=== PATIENT | female | born 1960 | race Caucasian/White ===

== ENCOUNTER 2018-11-02 09:33 | Day surgery (SDC) | payer MEDICARE ==
[2018-11-02] MEDS ORDERED: Marcaine 0.5% SDV 10 ML IJ ONE (09:34)
[2018-11-02] MEDS ORDERED: DIPRIVAN 200 MG/20 ML IV ONE (09:34)
[2018-11-02] MEDS ORDERED: Ketamine HCl 50 MG/ML IV ONE (09:34)
[2018-11-02] MEDS ORDERED: Depo-Medrol 40 MG/ML IM ONE (09:34)
--- NOTE | 2018-11-02 11:07 | XRAY ---
14 seconds fluoroscopy time in surgery for left hip injection.
--- NOTE | 2018-11-02 11:08 | XRAY ---
11 seconds fluoroscopy time in surgery for right hip injection.
--- NOTE | 2018-11-02 11:08 | XRAY ---
Indication: Left hip injection. Intraoperative fluoroscopy was provided for 14 seconds. Single digital spot image submitted for interpretation demonstrates needle tip just lateral to the left femur head. Small amount of contrast injected for needle tip placement. Correlate with intraoperative findings/report.
--- NOTE | 2018-11-02 11:17 | XRAY ---
Indication: Right hip injection. Intraoperative fluoroscopy was provided for 11 seconds. Single digital spot image submitted for interpretation demonstrates needle tip just lateral to the right femur head. Small amount of contrast injected for needle tip placement. Correlate with intraoperative findings/report.
[2018-11-02] MEDS ORDERED: Lactated Ringers 1,000 ML IV ONE (13:07)
== END 2018-11-02 10:40 | disposition home or self-care (01) ==
LOC: SDC-PAIN 09:33
PROVIDERS: ATTEND Psychiatry & Neurology Pain Medicine
DX: M16.0 Bilateral primary osteoarthritis of hip (principal); I12.9 Hypertensive chronic kidney disease with stage 1 through stage 4 chronic kidney disease, or unspecified chronic kidney disease; N18.3 Chronic kidney disease, stage 3 (moderate); E05.90 Thyrotoxicosis, unspecified without thyrotoxic crisis or storm; F32.9 Major depressive disorder, single episode, unspecified; J44.9 Chronic obstructive pulmonary disease, unspecified
CPT/HCPCS: 20610; 73501; 77002; J1030; J2704; Q9966

== ENCOUNTER 2019-01-22 21:46 | Emergency (ER) | payer MEDICARE ==
--- NOTE | 2019-01-22 22:00 | ERPHSYRPT ---
- History of Present Illness Time Seen by Provider: 01/22/19 22:00 Source: patient, family Exam Limitations: no limitations Physician History: 58 y/o white female with known hypertension on losartan/hctz and rapid heart rate on propranolol presents with both issues. pts noticed worsening sx 2 days ago. pt did feel lightheaded today. pt did not take her propranolol this evening. pt takes her bp at home using a wrist bp machine. pt has an appt with dolly pusher Dr. Carter 02/15/19. pt has intermittent cp, none now. denies dizziness and denies abd pain. Timing/Duration: day(s) (2) Severity: moderate Associated Symptoms: other (light headedness), No nausea, No vomiting, No abdominal pain, No chest pain, No headaches, No syncope Allergies/Adverse Reactions: erythromycin base [Erythromycin Base] Allergy (Verified 01/22/19 22:20) oxycodone HCl [From OxyContin] Allergy (Verified 01/22/19 22:20) Penicillins Allergy (Verified 01/22/19 22:20) Home Medications: Baclofen 10 mg [Lioresal 10 mg] 10 mg PO BID 01/22/19 [History] Levothyroxine Sodium [Tirosint] 75 mcg PO DAILY 01/22/19 [History] Losartan/Hydrochlorothiazide [Losartan-Hctz 100-12.5 mg Tab] 1 each PO DAILY [History] Propranolol HCl [Inderal Xl] 120 mg PO BID 01/22/19 [History] Rosuvastatin Calcium [Crestor] 5 mg PO HS 01/22/19 [History] Tramadol HCl 50 mg [Ultram 50 mg] 50 mg PO BID 01/22/19 [History] Zolpidem Tartrate 10 mg [Ambien 10 MG] 10 mg PO HS 01/22/19 [History] Hx Influenza Vaccination/Date Given: Yes (2012) Hx Pneumococcal Vaccination/Date Given: Yes (2011) - Review of Systems Constitutional: No Symptoms Eyes: No Symptoms Ears, Nose, & Throat: No Symptoms Respiratory: No Symptoms Cardiac: Chest Pain (intermittent), Palpitations Abdominal/Gastrointestinal: No Symptoms Genitourinary Symptoms: No Symptoms Musculoskeletal: No Symptoms Skin: No Symptoms Neurological: No Symptoms Psychological: No Symptoms Endocrine: No Symptoms Hematologic/Lymphatic: No Symptoms Immunological/Allergic: No Symptoms All Other Systems: Reviewed and Negative - Past Medical History Pertinent Past Medical History: Yes Neurological History: Migraines ENT History: Other Cardiac History: Hypertension Respiratory History: Asthma, Bronchitis, COPD, Pneumonia Endocrine Medical History: Hyperthyroidism, Hypothyroidism Musculoskeletal History: Degenerative Disk Disease, Fibromyalgia, Osteoarthritis , Osteoporosis GI Medical History: GERD, Irritable Bowel History: No Pertinent History Psycho-Social History: Anxiety, Depression Female Reproductive Disorders: No Pertinent History, Fibroids Other Medical History: FIBROMYGLIA,KIDNEY STONES, chronic dry eyes - Past Surgical History Past Surgical History: Yes Neuro Surgical History: No Pertinent History Cardiac: No Pertinent History Respiratory: Other Gastrointestinal: No Pertinent History Genitourinary: No Pertinent History Musculoskeletal: No Pertinent History Female Surgical History: No Pertinent History Other Surgical History: t&a. lung biopsy. chest tube after spontaneous pneumo. thyroid removed - Social History Smoking Status: Former smoker How long have you smoked: 35 yrs Exposure to second hand smoke: No Drug Use: none Patient Lives Alone: No - Nursing Vital Signs Nursing Vital Signs: Initial Vital Signs Pulse Rate 113 H 01/22/19 21:55 Respiratory Rate 18 01/22/19 21:55 Blood Pressure 152/124 01/22/19 21:55 O2 Sat by Pulse Oximetry 95 01/22/19 21:55 Pain Scale Pain Intensity 8 - Physical Exam General Appearance: mild distress, alert, anxiety Eye Exam: PERRL/EOMI, eyes nml inspection Ears, Nose, Throat Exam: normal ENT inspection, moist mucous membranes Neck Exam: normal inspection, non-tender, supple, full range of motion Respiratory Exam: normal breath sounds, lungs clear, airway intact, No chest tenderness, No respiratory distress Cardiovascular Exam: tachycardia Gastrointestinal/Abdomen Exam: soft, normal bowel sounds, No tenderness Pelvic Exam: not done Rectal Exam: not done Back Exam: normal inspection, normal range of motion, vertebral tenderness, No CVA tenderness Extremity Exam: normal inspection, normal range of motion, pelvis stable Neurologic Exam: alert, oriented x 3, cooperative, inspector finishing II-XII nml as tested, normal mood/affect Skin Exam: normal color, warm, dry Lymphatic Exam: No adenopathy SpO2 Interpretation: normal O2 Delivery: Room Air - Course Nursing assessment & vital signs reviewed: Yes EKG Interpreted by Me: RATE ([id number]), Sinus Tach, NORMAL AXIS, NORMAL INTERVALS, NORMAL QRS, Non-specific ST Changes, Other (new tachycardia and nonspecific st changes compared to ekg dated 04/19/12) Ordered Tests: Active Orders 24 hr Category Date Time Status Technical Applications Specialist STAT Care 01/22/19 22:22 Active EKG-ER Only STAT Care 01/22/19 22:20 Active IV Insertion STAT Care 01/22/19 22:20 Active Orthostatic Vital Signs STAT Care 01/22/19 22:24 Active Pulse Oximetry (ED) STAT Care 01/22/19 22:20 Active HEAD WITHOUT CONTRAST [CT] Stat Exams 01/22/19 23:45 Taken CBC W DIFF Stat Lab 01/22/19 22:20 Completed CMP Stat Lab 01/22/19 22:20 Completed CULTURE,URINE Stat Lab 01/22/19 23:56 Received D-DIMER QUANTITATION Stat Lab 01/22/19 22:20 Completed MAGNESIUM Stat Lab 01/22/19 22:20 Completed NT PRO BNP Stat Lab 01/22/19 22:20 Completed TROPONIN Q3H Lab 01/23/19 01:15 Ordered TROPONIN Q3H Lab 01/23/19 04:15 Ordered TROPONIN Q3H Lab 01/23/19 07:15 Ordered TROPONIN Q3H Lab 01/23/19 10:15 Ordered TROPONIN Q3H Lab 01/23/19 13:15 Ordered TROPONIN Q3H Lab 01/23/19 16:15 Ordered TROPONIN Q3H Lab 01/23/19 19:15 Ordered TROPONIN Q3H Lab 01/23/19 22:15 Ordered UA W/RFX UR CULTURE Stat Lab 01/22/19 23:56 Completed Medication Summary Generic Name Dose Route Start Last Admin Trade Name Freq PRN Reason Stop Dose Admin Sodium Chloride 1,000 mls @ 100 mls/hr 01/23/19 01:15 Sodium Chloride 0.9% 1000 Ml IV 02/22/19 01:14 .Q10H YISEL Discontinued Medications Generic Name Dose Route Start Last Admin Trade Name Freq PRN Reason Stop Dose Admin Acetaminophen 650 mg 01/23/19 01:06 Tylenol 325 Mg PO 01/23/19 01:07 STAT STA Acetaminophen Confirm 01/23/19 01:06 Tylenol 325 Mg Administered 01/23/19 01:07 Dose 650 mg .ROUTE .STK-MED ONE Enalaprilat 1.25 mg 01/22/19 23:45 01/22/19 23:59 Vasotec I.V. 2.5 Mg IV 01/22/19 23:46 1.25 mg STAT ONE Administration Enalaprilat Confirm 01/22/19 23:52 Vasotec I.V. 2.5 Mg Administered 01/22/19 23:53 Dose 2.5 mg IV .STK-MED ONE Lorazepam 0.5 mg 01/23/19 00:36 01/23/19 00:40 Ativan 2 Mg/1 Ml Vial IV 01/23/19 00:37 0.5 mg STAT ONE Administration Lorazepam Confirm 01/23/19 00:39 Ativan 2 Mg/1 Ml Vial Administered 01/23/19 00:40 Dose 2 mg .ROUTE .STK-MED ONE Metoprolol Tartrate 5 mg 01/22/19 22:23 01/22/19 22:30 Lopressor 5 Mg/5 Ml Injection IV 01/22/19 22:24 5 mg STAT ONE Administration Metoprolol Tartrate Confirm 01/22/19 22:28 Lopressor 5 Mg/5 Ml Injection Administered 01/22/19 22:29 Dose 5 mg IV .STK-MED ONE Lab/Rad Data: Laboratory Result Diagrams 01/22/19 22:20 01/22/19 22:20 Laboratory Results 01/22/19 01/22/19 01/22/19 Range/Units 23:56 22:20 22:20 WBC (4.0-10.5) K/mm3 RBC (4.1-5.4) M/mm3 Hgb (12.0-16.0) gm/dl Hct (35-47) % MCV (78-100) fl MCH (26-32) pg MCHC (32-36) g/dl RDW (11.5-14.0) % Plt Count (150-450) K/mm3 MPV (6-9.5) fl Gran % (36.0-66.0) % Eos # (Auto) (0-0.5) Absolute Lymphs (auto) (1.0-4.6) Absolute Monos (auto) (0.0-1.3) Lymphocytes % (24.0-44.0) % Monocytes % (0.0-12.0) % Eosinophils % (0.00-5.0) % Basophils % (0.0-0.4) % Absolute Granulocytes (1.4-6.9) Basophils # (0-0.4) D-Dimer < 208 L (215-500) ng/mL Sodium 141 (137-145) mmol/L Potassium 3.8 (3.5-5.1) mmol/L Chloride 103 (98-107) mmol/L Carbon Dioxide 24 (22-30) mmol/L Anion Gap 17.8 H (5-15) MEQ/L BUN 31 H (7-17) mg/dL Creatinine 1.72 H (0.52-1.04) mg/dL Estimated GFR 32.1 ML/MIN Glucose 106 (74-106) mg/dL Calcium 10.2 (8.4-10.2) mg/dL Magnesium 2.0 (1.6-2.3) mg/dL Total Bilirubin 0.50 (0.2-1.3) mg/dL AST 28 (14-36) U/L ALT 19 (0-35) U/L Alkaline Phosphatase 90 (38-126) U/L NT-Pro-B Natriuret Pep 76.8 (0-900) pg/mL Serum Total Protein 8.7 H (6.3-8.2) g/dL Albumin 4.9 (3.5-5.0) g/dL Urine Color YELLOW (YELLOW) Urine Appearance SLIGHTLY CLOUDY (CLEAR) Urine pH 5.0 (5-6) Ur Specific Skipwith 1.019 (1.005-1.025) Urine Protein NEGATIVE (Negative) Urine Ketones NEGATIVE (NEGATIVE) Urine Blood NEGATIVE (0-5) Oscar/ul Urine Nitrite NEGATIVE (NEGATIVE) Urine Bilirubin NEGATIVE (NEGATIVE) Urine Urobilinogen 2 (0-1) mg/dL Ur Leukocyte Esterase SMALL (NEGATIVE) Urine WBC (Auto) 11-15 (0-5) /HPF Urine RBC (Auto) 0-2 (0-2) /HPF U Hyaline Cast (Auto) 6-10 (0-2) /LPF U Epithel Cells (Auto) RARE (FEW) /HPF Urine Bacteria (Auto) NONE (NEGATIVE) /HPF Urine Mucus (Auto) SLIGHT (NEGATIVE) /HPF Urine Culture Reflexed YES (NO) Urine Glucose NEGATIVE (NEGATIVE) mg/dL 01/22/19 Range/Units 22:20 WBC 6.6 (4.0-10.5) K/mm3 RBC 5.23 (4.1-5.4) M/mm3 Hgb 15.7 (12.0-16.0) gm/dl Hct 48.4 H (35-47) % MCV 92.5 (78-100) fl MCH 30.0 (26-32) pg MCHC 32.4 (32-36) g/dl RDW 14.4 H (11.5-14.0) % Plt Count 289 (150-450) K/mm3 MPV 10.3 H (6-9.5) fl Gran % 37.0 (36.0-66.0) % Eos # (Auto) 0.11 (0-0.5) Absolute Lymphs (auto) 3.41 (1.0-4.6) Absolute Monos (auto) 0.62 (0.0-1.3) Lymphocytes % 51.4 H (24.0-44.0) % Monocytes % 9.4 (0.0-12.0) % Eosinophils % 1.7 (0.00-5.0) % Basophils % 0.5 (0.0-0.4) % Absolute Granulocytes 2.46 (1.4-6.9) Basophils # 0.03 (0-0.4) D-Dimer (215-500) ng/mL Sodium (137-145) mmol/L Potassium (3.5-5.1) mmol/L Chloride (98-107) mmol/L Carbon Dioxide (22-30) mmol/L Anion Gap (5-15) MEQ/L BUN (7-17) mg/dL Creatinine (0.52-1.04) mg/dL Estimated GFR ML/MIN Glucose (74-106) mg/dL Calcium (8.4-10.2) mg/dL Magnesium (1.6-2.3) mg/dL Total Bilirubin (0.2-1.3) mg/dL AST (14-36) U/L ALT (0-35) U/L Alkaline Phosphatase (38-126) U/L NT-Pro-B Natriuret Pep (0-900) pg/mL Serum Total Protein (6.3-8.2) g/dL Albumin (3.5-5.0) g/dL Urine Color (YELLOW) Urine Appearance (CLEAR) Urine pH (5-6) Ur Specific Skipwith (1.005-1.025) Urine Protein (Negative) Urine Ketones (NEGATIVE) Urine Blood (0-5) Oscar/ul Urine Nitrite (NEGATIVE) Urine Bilirubin (NEGATIVE) Urine Urobilinogen (0-1) mg/dL Ur Leukocyte Esterase (NEGATIVE) Urine WBC (Auto) (0-5) /HPF Urine RBC (Auto) (0-2) /HPF U Hyaline Cast (Auto) (0-2) /LPF U Epithel Cells (Auto) (FEW) /HPF Urine Bacteria (Auto) (NEGATIVE) /HPF Urine Mucus (Auto) (NEGATIVE) /HPF Urine Culture Reflexed (NO) Urine Glucose (NEGATIVE) mg/dL - Progress Progress: improved, pain not gone completely Progress Note: 01/23/19 01:12 family reports pt not taking meds the way she was told to.. ct head-no acute process. pt complains of headache. Counseled pt/family regarding: lab results, diagnosis, need for follow-up, rad results - Departure Departure Disposition: Home Clinical Impression: Headache, Hypertensive urgency, Tachycardia, UTI (urinary tract infection) Condition: Stable Critical Care Time: Yes Critical Care Time(excluding separately billable procedures): Critical 30-74 mins Referrals: WILSON DAVID [Primary Care Provider] - Additional Instructions: call dr. carter's office today for further management. monitor and record your blood pressure and heart rate 3 times daily. take your medications as prescribed. Prescriptions: Ciprofloxacin [Cipro 500 MG] 500 mg PO BID #14 tablet
[2019-01-22] MEDS ORDERED: LOPRESSOR 5 MG/5 ML INJECTION IV ONE ×2 (22:23→22:28)
[2019-01-22 22:29] LABS: BASOPHIL % 0.5 % (0.0-0.4); Basophil (Absolute #) 0.03 (0-0.4); Eosinophil % 1.7 % (0.00-5.0); Eosinophil (Absolute #) 0.11 (0-0.5); Granulocyte Absolute (ANC) 2.46 (1.4-6.9); Hematocrit 48.4 % (35-47); Hemoglobin 15.7 gm/dl (12.0-16.0); Lymphocyte (Absolute #) 3.41 (1.0-4.6); Lymphocytes % 51.4 % (24.0-44.0); Mean Cell Volume 92.5 fl (78-100); Mean Corpuscular Hgb Concent. 32.4 g/dl (32-36); Mean Platelet Volume 10.3 fl (6-9.5); Monocyte (Absolute #) 0.62 (0.0-1.3); Monocytes % 9.4 % (0.0-12.0); Platelet Count 289 K/mm3 (150-450); Red Blood Count 5.23 M/mm3 (4.1-5.4); Red Cell Distribution Width 14.4 % (11.5-14.0); White Blood Count 6.6 K/mm3 (4.0-10.5)
[2019-01-22 22:43] LABS: ALBUMIN 4.9 g/dL (3.5-5.0); ANION GAP 17.8 MEQ/L (5-15); BILIRUBIN,TOTAL 0.5 mg/dL (0.2-1.3); Calcium 10.2 mg/dL (8.4-10.2); Creatinine 1 1.72 mg/dL (0.52-1.04); NT PRO BNP 76.8 pg/mL (0-900); Potassium 3.8 mmol/L (3.5-5.1); Total Protein 8.7 g/dL (6.3-8.2)
[2019-01-22] MEDS ORDERED: VASOTEC I.V. 2.5 MG IV ONE ×2 (23:45→23:52)
[2019-01-23] MEDS ORDERED: Ativan 2 MG/1 ML VIAL IV ONE (00:36)
[2019-01-23 00:39] LABS: Appearance SLIGHTLY CLOUDY (CLEAR); Bilirubin NEGATIVE (NEGATIVE); Blood NEGATIVE Ery/ul (0-5); Epithelial Cells RARE /HPF (FEW); Glucose NEGATIVE (NEGATIVE); Ketones NEGATIVE (NEGATIVE); Leukocyte Esterase SMALL (NEGATIVE); Mucus SLIGHT /HPF (NEGATIVE); Nitrite NEGATIVE (NEGATIVE); Protein,Urine Dip NEGATIVE (Negative); RBC 0-2 /HPF (0-2); Specific Gravity 1.019 (1.005-1.025); Urobilinogen 2 mg/dL (0-1)
[2019-01-23] MEDS ORDERED: Ativan 2 MG/1 ML VIAL ONE (00:39)
[2019-01-23] MEDS ORDERED: TYLENOL 325 MG PO STA (01:06)
[2019-01-23] MEDS ORDERED: Sodium Chloride 0.9% 1000 ML 0 ML ONE (01:06)
[2019-01-23] MEDS ORDERED: TYLENOL 325 MG ONE (01:06)
[2019-01-23] MEDS ORDERED: Sodium Chloride 0.9% 1000 ML 1,000 ML IV SCH (01:15)
[2019-01-23 01:46] VITALS: BP 120/86; PULSE 85; O2SAT 97
[2019-01-23] MEDS ORDERED: Cipro 500 MG PO ONE (01:51)
[2019-01-23] MEDS ORDERED: Cipro 500 MG ONE (01:52)
--- NOTE | 2019-01-23 08:42 | XRAY ---
Indication: Headache. Hypertension. Tachycardia and palpitations. Multiple contiguous axial images obtained through the head without contrast. Comparison: None Normal appearing brain parenchyma, ventricles, and bony calvarium. Minimal mucosal thickening both ethmoid sinuses. Remaining visualized paranasal sinuses and mastoid air cells are clear. Impression: Minimal paranasal sinus disease. Remaining CT head without contrast exam is negative. Comment: Preliminary interpretation was made by [facility]. No critical discrepancy. CT DI 69.25
== END 2019-01-23 02:06 | disposition home or self-care (01) ==
LOC: ED 21:46
DX: R51 Headache (principal); I16.0 Hypertensive urgency; R00.0 Tachycardia, unspecified; N39.0 Urinary tract infection, site not specified
CPT/HCPCS: 36000; 36415; 70450; 80053; 81001; 83735; 83880; 84484; 85025; 85379; 87086; 93005; 93041; 94760; 96374; 96375; 99285; 99291; J2060; A9270-GY

== ENCOUNTER 2019-01-28 17:41 | Emergency (ER) | payer MEDICARE ==
--- NOTE | 2019-01-28 18:32 | ERPHSYRPT ---
- History of Present Illness Time Seen by Provider: 01/28/19 18:10 Source: patient Exam Limitations: no limitations Patient Subjective Stated Complaint: pt reports hypotension today measuring 89/ 45. pt reports she was seen at this facility for hypertension 01/22/19. states she was started on metoprolol 01/25/19. pt reports dizziness upon standing and decreased energy since last weekend. Triage Nursing Assessment: pt is aox3, pupils perrl, resps easy and non labored , pt appears in no distress, radial pulses strong and equal, cap refill < 3 seconds, pt skin pink warm dry. Physician History: Pt was seen here 6 days ago with high blood pressure, her Cozaar/HCT was changed to plain Cozaar 100 mg AM, and continued Metoprolol XT 25 mg daily. She has been also taking Cipro for UTI for 6 days, she is c/o dizziness for about one week, denies headaches, falling, loss of balance, vertigo, no focal weakness , chest pain or severe SOB, nausea, fever other complaints. Timing/Duration: day(s) (7) Severity: mild, moderate Character of Deficits: general (difuse) Deficits: no difficulties Baseline/Normal Cognition: alert oriented x 3 Current Cognition: alert oriented x 3 Baseline Gait: walks w/o assistance Associated Symptoms: weakness (generalized) Allergies/Adverse Reactions: erythromycin base [Erythromycin Base] Allergy (Verified 01/28/19 18:08) oxycodone HCl [From OxyContin] Allergy (Verified 01/28/19 18:08) Penicillins Allergy (Verified 01/28/19 18:08) Home Medications: Baclofen 10 mg [Lioresal 10 mg] 10 mg PO BID 01/22/19 [History] Levothyroxine Sodium [Tirosint] 75 mcg PO DAILY 01/22/19 [History] Tramadol HCl 50 mg [Ultram 50 mg] 50 mg PO BID 01/22/19 [History] Zolpidem Tartrate 10 mg [Ambien 10 MG] 10 mg PO HS 01/22/19 [History] Losartan Potassium 100 mg PO DAILY 01/28/19 [History] Metoprolol Tartrate 25 mg [Lopressor 25MG Tab] 25 mg PO HS 08/24/19 [ History] Hx Tetanus, Diphtheria Vaccination/Date Given: No Hx Influenza Vaccination/Date Given: No Hx Pneumococcal Vaccination/Date Given: No Immunizations Up to Date: Yes - Review of Systems Constitutional: No Symptoms Eyes: No Symptoms Ears, Nose, & Throat: No Symptoms Respiratory: No Symptoms Cardiac: No Symptoms Abdominal/Gastrointestinal: No Symptoms Genitourinary Symptoms: No Symptoms Musculoskeletal: No Symptoms Skin: No Symptoms Neurological: Dizziness Psychological: No Symptoms All Other Systems: Reviewed and Negative - Past Medical History Pertinent Past Medical History: Yes Neurological History: Migraines ENT History: Other Cardiac History: Hypertension Respiratory History: Asthma, Bronchitis, COPD, Pneumonia Endocrine Medical History: Hyperthyroidism, Hypothyroidism Musculoskeletal History: Degenerative Disk Disease, Fibromyalgia, Osteoarthritis , Osteoporosis GI Medical History: GERD, Irritable Bowel History: No Pertinent History Psycho-Social History: Anxiety, Depression Female Reproductive Disorders: No Pertinent History, Fibroids Other Medical History: FIBROMYGLIA,KIDNEY STONES, chronic dry eyes - Past Surgical History Past Surgical History: Yes Neuro Surgical History: No Pertinent History Cardiac: No Pertinent History Respiratory: Other Gastrointestinal: No Pertinent History Genitourinary: No Pertinent History Musculoskeletal: No Pertinent History Female Surgical History: No Pertinent History Other Surgical History: t&a. lung biopsy. chest tube after spontaneous pneumo. thyroid removed - Social History Smoking Status: Former smoker How long have you smoked: 35 yrs Exposure to second hand smoke: No Drug Use: none Patient Lives Alone: Yes - Female History Hx Now: No - Nursing Vital Signs Nursing Vital Signs: Initial Vital Signs Temperature 98.7 F 01/28/19 17:53 Pulse Rate 72 01/28/19 17:53 Respiratory Rate 20 01/28/19 17:53 Blood Pressure 166/88 01/28/19 17:53 O2 Sat by Pulse Oximetry 97 01/28/19 17:53 Pain Scale Pain Intensity 0 - [place] Coma Scale Best Eye Response ([place]): (4) open spontaneously Best Verbal Response ([place]): (5) oriented Best Motor Response ([place]): (6) obeys commands [place] Total: 15 - Physical Exam General Appearance: no apparent distress Eye Exam: bilateral eye: PERRL, EOMI Ears, Nose, Throat Exam: normal ENT inspection, pharynx normal, moist mucous membranes Neck Exam: normal inspection, non-tender, supple, No carotid bruit, No JVD Respiratory: normal breath sounds, lungs clear, airway intact, No chest tenderness Cardiovascular: regular rate/rhythm, normal heart sounds, normal peripheral pulses, No murmur Gastrointestinal: soft, normal bowel sounds, No tenderness, No distention, No mass, No guarding, No ecchymosis, No rebound, No organomegaly Extremity Exam: normal inspection, No calf tenderness, No dilia's sign, No pedal edema Peripheral Pulses: carotid (R): 2+, carotid (L): 2+, dorsalis-pedis (R): 2+, dorsalis-pedis (L): 2+ Mental Status: alert, oriented x 3, cooperative supervisor stave cutting Exam: normal speech, PERRL Coordination/Gait: normal gait Motor/Sensory: no motor deficit, no sensory deficit DTR: bicep (R): 2+, bicep (L): 2+, knee (R): 2+, knee (L): 2+, ankle (R): 2+, ankle (L): 2+ Skin Exam: normal color, warm, dry, No rash, No petechiae, No cyanosis, No diaphoresis SpO2 Interpretation: normal SpO2: 97 O2 Delivery: Room Air - Course Nursing assessment & vital signs reviewed: Yes EKG Interpreted by Me: RATE (56/min), Sinus Teofilo, NORMAL AXIS, NORMAL INTERVALS , NORMAL QRS, Non-specific ST Changes Ordered Tests: Active Orders 24 hr Category Date Time Status Transit Driver STAT Care 01/28/19 18:26 Active EKG-ER Only STAT Care 01/28/19 18:25 Active IV Insertion STAT Care 01/28/19 19:44 Active CBC W DIFF Stat Lab 01/28/19 18:43 Completed CK-Creatinine Phosphokinase Stat Lab 01/28/19 18:43 Completed CMP Stat Lab 01/28/19 18:43 Completed MAGNESIUM Stat Lab 01/28/19 18:43 Completed NT PRO BNP Stat Lab 01/28/19 18:43 Completed PROTIME WITH INR Stat Lab 01/28/19 18:43 Completed PTT Stat Lab 01/28/19 18:43 Completed TROPONIN Q3H Lab 01/28/19 18:43 Completed TROPONIN Q3H Lab 01/28/19 21:30 Ordered TROPONIN Q3H Lab 01/29/19 00:30 Ordered TROPONIN Q3H Lab 01/29/19 03:30 Ordered TROPONIN Q3H Lab 01/29/19 06:30 Ordered TSH [TSH, 3RD Generation] Stat Lab 01/28/19 18:43 Completed UA W/RFX UR CULTURE Stat Lab 01/28/19 19:03 Completed Medication Summary Generic Name Dose Route Start Last Admin Trade Name Freq PRN Reason Stop Dose Admin Sodium Chloride 1,000 mls @ 100 mls/hr 01/28/19 19:45 01/28/19 20:09 Sodium Chloride 0.9% 1000 Ml IV 02/27/19 19:44 100 mls/hr .Q10H YISEL Administration Sodium Chloride 500 mls @ 500 mls/hr 01/28/19 20:28 Sodium Chloride 0.9% 500 Ml IV 01/28/19 21:27 .Q1H ONE Discontinued Medications Generic Name Dose Route Start Last Admin Trade Name Freq PRN Reason Stop Dose Admin Meclizine HCl 25 mg 01/28/19 19:07 01/28/19 19:21 Antivert 25 Mg PO 01/28/19 19:08 25 mg STAT ONE Administration Meclizine HCl Confirm 01/28/19 19:15 Antivert 25 Mg Administered 01/28/19 19:16 Dose 25 mg .ROUTE .STK-MED ONE Lab/Rad Data: Laboratory Result Diagrams 01/28/19 18:43 01/28/19 18:43 Laboratory Results 01/28/19 01/28/19 01/28/19 Range/Units 19:03 18:43 18:43 WBC (4.0-10.5) K/mm3 RBC (4.1-5.4) M/mm3 Hgb (12.0-16.0) gm/dl Hct (35-47) % MCV (78-100) fl MCH (26-32) pg MCHC (32-36) g/dl RDW (11.5-14.0) % Plt Count (150-450) K/mm3 MPV (6-9.5) fl Gran % (36.0-66.0) % Eos # (Auto) (0-0.5) Absolute Lymphs (auto) (1.0-4.6) Absolute Monos (auto) (0.0-1.3) Lymphocytes % (24.0-44.0) % Monocytes % (0.0-12.0) % Eosinophils % (0.00-5.0) % Basophils % (0.0-0.4) % Absolute Granulocytes (1.4-6.9) Basophils # (0-0.4) PT (9.95-12.35) SECONDS INR (0.8-3.0) APTT (25.3-37.0) SECONDS Sodium (137-145) mmol/L Potassium (3.5-5.1) mmol/L Chloride (98-107) mmol/L Carbon Dioxide (22-30) mmol/L Anion Gap (5-15) MEQ/L BUN (7-17) mg/dL Creatinine (0.52-1.04) mg/dL Estimated GFR ML/MIN Glucose (74-106) mg/dL Calcium (8.4-10.2) mg/dL Magnesium (1.6-2.3) mg/dL Total Bilirubin (0.2-1.3) mg/dL AST (14-36) U/L ALT (0-35) U/L Alkaline Phosphatase (38-126) U/L Creatine Kinase (30-135) U/L Troponin I < 0.012 (0.000-0.034) ng/mL NT-Pro-B Natriuret Pep (0-900) pg/mL Serum Total Protein (6.3-8.2) g/dL Albumin (3.5-5.0) g/dL TSH 3rd Generation 0.026 L (0.47-4.68) mIU/L Urine Color YELLOW (YELLOW) Urine Appearance CLEAR (CLEAR) Urine pH 5.0 (5-6) Ur Specific [place] 1.010 (1.005-1.025) Urine Protein NEGATIVE (Negative) Urine Ketones NEGATIVE (NEGATIVE) Urine Blood NEGATIVE (0-5) Oscar/ul Urine Nitrite NEGATIVE (NEGATIVE) Urine Bilirubin NEGATIVE (NEGATIVE) Urine Urobilinogen NEGATIVE (0-1) mg/dL Ur Leukocyte Esterase NEGATIVE (NEGATIVE) Urine WBC (Auto) 0-2 (0-5) /HPF Urine RBC (Auto) 0-2 (0-2) /HPF U Hyaline Cast (Auto) 3-5 (0-2) /LPF U Epithel Cells (Auto) NONE (FEW) /HPF Urine Bacteria (Auto) NONE (NEGATIVE) /HPF Urine Mucus (Auto) SLIGHT (NEGATIVE) /HPF Urine Culture Reflexed NO (NO) Urine Glucose NEGATIVE (NEGATIVE) mg/dL 01/28/19 01/28/19 01/28/19 Range/Units 18:43 18:43 18:43 WBC 6.5 (4.0-10.5) K/mm3 RBC 4.90 (4.1-5.4) M/mm3 Hgb 15.0 (12.0-16.0) gm/dl Hct 44.8 (35-47) % MCV 91.4 (78-100) fl MCH 30.6 (26-32) pg MCHC 33.5 (32-36) g/dl RDW 14.0 (11.5-14.0) % Plt Count 267 (150-450) K/mm3 MPV 9.9 H (6-9.5) fl Gran % 45.7 (36.0-66.0) % Eos # (Auto) 0.11 (0-0.5) Absolute Lymphs (auto) 2.69 (1.0-4.6) Absolute Monos (auto) 0.69 (0.0-1.3) Lymphocytes % 41.2 (24.0-44.0) % Monocytes % 10.6 (0.0-12.0) % Eosinophils % 1.7 (0.00-5.0) % Basophils % 0.8 (0.0-0.4) % Absolute Granulocytes 2.99 (1.4-6.9) Basophils # 0.05 (0-0.4) PT 11.6 (9.95-12.35) SECONDS INR 1.03 (0.8-3.0) APTT 35.1 (25.3-37.0) SECONDS Sodium 140 (137-145) mmol/L Potassium 3.6 (3.5-5.1) mmol/L Chloride 102 (98-107) mmol/L Carbon Dioxide 25 (22-30) mmol/L Anion Gap 16.6 H (5-15) MEQ/L BUN 47 H (7-17) mg/dL Creatinine 2.53 H (0.52-1.04) mg/dL Estimated GFR 20.6 ML/MIN Glucose 124 H (74-106) mg/dL Calcium 10.5 H (8.4-10.2) mg/dL Magnesium 2.4 H (1.6-2.3) mg/dL Total Bilirubin 0.60 (0.2-1.3) mg/dL AST 25 (14-36) U/L ALT 16 (0-35) U/L Alkaline Phosphatase 72 (38-126) U/L Creatine Kinase 73 (30-135) U/L Troponin I (0.000-0.034) ng/mL NT-Pro-B Natriuret Pep 161 (0-900) pg/mL Serum Total Protein 8.3 H (6.3-8.2) g/dL Albumin 4.8 (3.5-5.0) g/dL TSH 3rd Generation (0.47-4.68) mIU/L Urine Color (YELLOW) Urine Appearance (CLEAR) Urine pH (5-6) Ur Specific [place] (1.005-1.025) Urine Protein (Negative) Urine Ketones (NEGATIVE) Urine Blood (0-5) Oscar/ul Urine Nitrite (NEGATIVE) Urine Bilirubin (NEGATIVE) Urine Urobilinogen (0-1) mg/dL Ur Leukocyte Esterase (NEGATIVE) Urine WBC (Auto) (0-5) /HPF Urine RBC (Auto) (0-2) /HPF U Hyaline Cast (Auto) (0-2) /LPF U Epithel Cells (Auto) (FEW) /HPF Urine Bacteria (Auto) (NEGATIVE) /HPF Urine Mucus (Auto) (NEGATIVE) /HPF Urine Culture Reflexed (NO) Urine Glucose (NEGATIVE) mg/dL - Progress Progress: improved Progress Note: 01/28/19 20:30 Pt was given NS bolus IV 500 ml, she has been stable, denies severe headaches, or dizziness, no chest pain or SOB< reviewed her results, called Dr Araujo, discussed the case with her in details, she suggested to transfer her for Nephrology evaluation, we called Dr Rodarte in [facility] ED, he does not believe she meets admission criteria, she will be discharged home advising to continue current medications and follow up with her Executive Vice President And Chief Financial Officer, Dr Nixon next week. Counseled pt/family regarding: lab results, diagnosis, need for follow-up ( Executive Vice President And Chief Financial Officer) - Departure Departure Disposition: Home Clinical Impression: Dizziness Renal failure (ARF), acute on chronic Qualifiers: Acute renal failure type: unspecified Chronic kidney disease stage: unspecified stage Qualified Code(s): N17.9 - Acute kidney failure, unspecified; N18.9 - Chronic kidney disease, unspecified Condition: Stable Critical Care Time: No Referrals: WILSON DAVID [Primary Care Provider] - Instructions: Medicines for High Blood Pressure, Dizziness, Nonvertigo, (DC), Kidney Failure (DC) Additional Instructions: Rest x 2-3 days, drink plenty of fluids, and follow up with your Executive Vice President And Chief Financial Officer next week, return if severe headaches, dizziness, vomiting, shortness of breath or blood pressure > 210/120 !
[2019-01-28 18:46] LABS: BASOPHIL % 0.8 % (0.0-0.4); Basophil (Absolute #) 0.05 (0-0.4); Eosinophil % 1.7 % (0.00-5.0); Eosinophil (Absolute #) 0.11 (0-0.5); Granulocyte Absolute (ANC) 2.99 (1.4-6.9); Granulocytes % 45.7 % (36.0-66.0); Hematocrit 44.8 % (35-47); Lymphocyte (Absolute #) 2.69 (1.0-4.6); Lymphocytes % 41.2 % (24.0-44.0); Mean Cell Volume 91.4 fl (78-100); Mean Corpuscular Hemoglobin 30.6 pg (26-32); Mean Corpuscular Hgb Concent. 33.5 g/dl (32-36); Mean Platelet Volume 9.9 fl (6-9.5); Monocyte (Absolute #) 0.69 (0.0-1.3); Monocytes % 10.6 % (0.0-12.0); Platelet Count 267 K/mm3 (150-450); White Blood Count 6.5 K/mm3 (4.0-10.5)
[2019-01-28 19:06] LABS: INR 1.03 (0.8-3.0); PROTIME 11.6 SECONDS (9.95-12.35)
[2019-01-28] MEDS ORDERED: ANTIVERT 25 MG PO ONE (19:07)
[2019-01-28 19:09] LABS: PTT 35.1 SECONDS (25.3-37.0)
[2019-01-28 19:11] LABS: Appearance CLEAR (CLEAR); Bilirubin NEGATIVE (NEGATIVE); Blood NEGATIVE Ery/ul (0-5); Glucose NEGATIVE (NEGATIVE); Ketones NEGATIVE (NEGATIVE); Leukocyte Esterase NEGATIVE (NEGATIVE); Mucus SLIGHT /HPF (NEGATIVE); Nitrite NEGATIVE (NEGATIVE); Protein,Urine Dip NEGATIVE (Negative); RBC 0-2 /HPF (0-2); Urobilinogen NEGATIVE mg/dL (0-1); WBC 0-2 /HPF (0-5)
[2019-01-28 19:13] LABS: ALBUMIN 4.8 g/dL (3.5-5.0); ANION GAP 16.6 MEQ/L (5-15); BILIRUBIN,TOTAL 0.6 mg/dL (0.2-1.3); Calcium 10.5 mg/dL (8.4-10.2); Creatinine 1 2.53 mg/dL (0.52-1.04); MAGNESIUM 2.4 mg/dL (1.6-2.3); Potassium 3.6 mmol/L (3.5-5.1); Total Protein 8.3 g/dL (6.3-8.2)
[2019-01-28] MEDS ORDERED: ANTIVERT 25 MG ONE (19:15)
[2019-01-28] MEDS ORDERED: Sodium Chloride 0.9% 1000 ML 1,000 ML IV SCH (19:45)
[2019-01-28] MEDS ORDERED: Sodium Chloride 0.9% 1000 ML 1,000 ML ONE (19:50)
[2019-01-28] MEDS ORDERED: Sodium Chloride 0.9% 500 ML 500 ML IV ONE (20:28)
[2019-01-28 21:17] VITALS: BP 147/96; PULSE 64; O2SAT 99
== END 2019-01-28 21:27 | disposition home or self-care (01) ==
LOC: ED 17:41
DX: R42 Dizziness and giddiness (principal); I12.9 Hypertensive chronic kidney disease with stage 1 through stage 4 chronic kidney disease, or unspecified chronic kidney disease; N18.9 Chronic kidney disease, unspecified; N17.9 Acute kidney failure, unspecified; J44.9 Chronic obstructive pulmonary disease, unspecified; E03.9 Hypothyroidism, unspecified; E05.90 Thyrotoxicosis, unspecified without thyrotoxic crisis or storm; M81.0 Age-related osteoporosis without current pathological fracture; F41.0 Panic disorder [episodic paroxysmal anxiety]; F32.9 Major depressive disorder, single episode, unspecified; Z79.899 Other long term (current) drug therapy
CPT/HCPCS: 36000; 36415; 80053; 81001; 82550; 83735; 83880; 84443; 84484; 85025; 85610; 85730; 93005; 93041; 96360; 96374; 99284; A9270-GY

== ENCOUNTER 2019-02-05 01:51 | Emergency (ER) | payer MEDICARE ==
[2019-02-05] MEDS ORDERED: Ativan 1 MG PO ONE (02:06)
--- NOTE | 2019-02-05 02:07 | ERPHSYRPT ---
- History of Present Illness Time Seen by Provider: 02/05/19 02:07 Source: patient, family Exam Limitations: no limitations Physician History: pt is 58 year old female with feeling like going into failure ( has renal disease - no dialysis) and feels like dry mouth and reports trouble swallowing from this but no pain; Timing/Duration: day(s) Severity: moderate Associated Symptoms: shortness of breath Allergies/Adverse Reactions: erythromycin base [Erythromycin Base] Allergy (Verified 02/05/19 01:59) oxycodone HCl [From OxyContin] Allergy (Verified 02/05/19 01:59) Penicillins Allergy (Verified 02/05/19 01:59) Home Medications: Baclofen 10 mg [Lioresal 10 mg] 10 mg PO BID 01/22/19 [History] Levothyroxine Sodium [Tirosint] 75 mcg PO DAILY 01/22/19 [History] Tramadol HCl 50 mg [Ultram 50 mg] 50 mg PO BID 01/22/19 [History] Zolpidem Tartrate 10 mg [Ambien 10 MG] 10 mg PO HS 01/22/19 [History] Losartan Potassium 100 mg PO DAILY 01/28/19 [History] Metoprolol Tartrate 25 mg [Lopressor 25MG Tab] 25 mg PO HS 01/28/19 [ History] Hx Tetanus, Diphtheria Vaccination/Date Given: No Hx Influenza Vaccination/Date Given: No Hx Pneumococcal Vaccination/Date Given: No - Review of Systems Constitutional: No Fever, No Chills Eyes: No Symptoms Ears, Nose, & Throat: No Symptoms Respiratory: Dyspnea, No Cough Cardiac: No Chest Pain, No Edema, No Syncope Abdominal/Gastrointestinal: No Abdominal Pain, No Nausea, No Vomiting, No Diarrhea Genitourinary Symptoms: No Dysuria Musculoskeletal: No Back Pain, No Neck Pain Skin: No Rash Neurological: No Dizziness, No Focal Weakness, No Sensory Changes Psychological: No Symptoms Endocrine: No Symptoms All Other Systems: Reviewed and Negative - Past Medical History Pertinent Past Medical History: Yes Neurological History: Migraines ENT History: Other Cardiac History: Hypertension Respiratory History: Asthma, Bronchitis, COPD, Pneumonia Endocrine Medical History: Hyperthyroidism, Hypothyroidism Musculoskeletal History: Degenerative Disk Disease, Fibromyalgia, Osteoarthritis , Osteoporosis GI Medical History: GERD, Irritable Bowel History: No Pertinent History Psycho-Social History: Anxiety, Depression Female Reproductive Disorders: No Pertinent History, Fibroids Other Medical History: FIBROMYGLIA,KIDNEY STONES, chronic dry eyes - Past Surgical History Past Surgical History: Yes Neuro Surgical History: No Pertinent History Cardiac: No Pertinent History Respiratory: Other Gastrointestinal: No Pertinent History Genitourinary: No Pertinent History Musculoskeletal: No Pertinent History Female Surgical History: No Pertinent History Other Surgical History: t&a. lung biopsy. chest tube after spontaneous pneumo. thyroid removed - Social History Smoking Status: Former smoker How long have you smoked: 35 yrs Exposure to second hand smoke: No Drug Use: none Patient Lives Alone: Yes - Nursing Vital Signs Nursing Vital Signs: Initial Vital Signs Temperature 97.8 F 02/05/19 02:00 Pulse Rate 84 02/05/19 02:00 Respiratory Rate 18 02/05/19 02:00 Blood Pressure 169/115 02/05/19 02:00 O2 Sat by Pulse Oximetry 97 02/05/19 02:00 Pain Scale Pain Intensity 0 - Physical Exam General Appearance: no apparent distress, alert Eye Exam: PERRL/EOMI, eyes nml inspection Ears, Nose, Throat Exam: normal ENT inspection, TMs normal, pharynx normal, moist mucous membranes Neck Exam: normal inspection, non-tender, supple, full range of motion Respiratory Exam: normal breath sounds, lungs clear, No respiratory distress Cardiovascular Exam: regular rate/rhythm, normal heart sounds, normal peripheral pulses Gastrointestinal/Abdomen Exam: soft, normal bowel sounds, No tenderness, No mass Pelvic Exam: deferred Rectal Exam: deferred Back Exam: normal inspection, normal range of motion, No CVA tenderness, No vertebral tenderness Extremity Exam: normal inspection, normal range of motion, pelvis stable Neurologic Exam: alert, oriented x 3, cooperative, public relations player II-XII nml as tested, normal mood/affect, nml cerebellar function, nml station & gait, sensation nml, No motor deficits Skin Exam: normal color, warm, dry, No rash Lymphatic Exam: No adenopathy - Course Nursing assessment & vital signs reviewed: Yes EKG Interpreted by Me: Sinus Rhythm, NORMAL AXIS, NORMAL INTERVALS, Non- specific ST Changes - Radiology Exams Chest X-ray Interpretation: Reviewed by me, Other (granulomata) Ordered Tests: Active Orders 24 hr Category Date Time Status EKG-ER Only STAT Care 02/05/19 02:01 Active IV Insertion STAT Care 02/05/19 02:01 Active CHEST 2 VIEWS (PA AND LAT) Stat Exams 02/05/19 02:05 Taken CBC W DIFF Stat Lab 02/05/19 02:36 Completed CMP Stat Lab 02/05/19 02:36 Completed D-DIMER QUANTITATION Stat Lab 02/05/19 02:36 Completed Lactic Acid Stat Lab 02/05/19 02:30 Completed NT PRO BNP Stat Lab 02/05/19 02:36 Completed T4 (Thyroxine) Stat Lab 02/05/19 02:36 Completed TROPONIN Q3H Lab 02/05/19 05:15 Ordered TROPONIN Q3H Lab 02/05/19 08:15 Ordered TROPONIN Q3H Lab 02/05/19 11:15 Ordered TROPONIN Q3H Lab 02/05/19 14:15 Ordered TROPONIN Stat Lab 02/05/19 02:36 Completed TSH, 3RD Generation Stat Lab 02/05/19 02:36 Completed UA W/RFX UR CULTURE Stat Lab 02/05/19 02:55 Completed Medication Summary Generic Name Dose Route Start Last Admin Trade Name Freq PRN Reason Stop Dose Admin Sodium Chloride 1,000 mls @ 100 mls/hr 02/05/19 02:15 02/05/19 02:42 Sodium Chloride 0.9% 1000 Ml IV 03/07/19 02:14 100 mls/hr .Q10H YISEL Administration Discontinued Medications Generic Name Dose Route Start Last Admin Trade Name Freq PRN Reason Stop Dose Admin Lorazepam 1 mg 02/05/19 02:06 02/05/19 02:42 Ativan 1 Mg PO 02/05/19 02:07 1 mg STAT ONE Administration Lorazepam Confirm 02/05/19 02:41 Ativan 1 Mg Administered 02/05/19 02:42 Dose 1 mg .ROUTE .STK-MED ONE Lab/Rad Data: Laboratory Result Diagrams 02/05/19 02:36 02/05/19 02:36 Laboratory Results 02/05/19 02/05/19 02/05/19 Range/Units 03:22 02:55 02:36 WBC (4.0-10.5) K/mm3 RBC (4.1-5.4) M/mm3 Hgb (12.0-16.0) gm/dl Hct (35-47) % MCV (78-100) fl MCH (26-32) pg MCHC (32-36) g/dl RDW (11.5-14.0) % Plt Count (150-450) K/mm3 MPV (6-9.5) fl Gran % (36.0-66.0) % Eos # (Auto) (0-0.5) Absolute Lymphs (auto) (1.0-4.6) Absolute Monos (auto) (0.0-1.3) Lymphocytes % (24.0-44.0) % Monocytes % (0.0-12.0) % Eosinophils % (0.00-5.0) % Basophils % (0.0-0.4) % Absolute Granulocytes (1.4-6.9) Basophils # (0-0.4) D-Dimer < 128 L (215-500) ng/mL Sodium (137-145) mmol/L Potassium (3.5-5.1) mmol/L Chloride (98-107) mmol/L Carbon Dioxide (22-30) mmol/L Anion Gap (5-15) MEQ/L BUN (7-17) mg/dL Creatinine (0.52-1.04) mg/dL Estimated GFR ML/MIN Glucose (74-106) mg/dL Lactic Acid (0.4-2.0) Calcium (8.4-10.2) mg/dL Total Bilirubin (0.2-1.3) mg/dL AST (14-36) U/L ALT (0-35) U/L Alkaline Phosphatase (38-126) U/L Troponin I (0.000-0.034) ng/mL NT-Pro-B Natriuret Pep (0-900) pg/mL Serum Total Protein (6.3-8.2) g/dL Albumin (3.5-5.0) g/dL Thyroxine (T4) (5.53-10.96) ug/dL TSH 3rd Generation (0.47-4.68) mIU/L Urine Color STRAW (YELLOW) Urine Appearance CLEAR (CLEAR) Urine pH 5.0 (5-6) Ur Specific [place] 1.002 (1.005-1.025) Urine Protein NEGATIVE (Negative) Urine Ketones TRACE (NEGATIVE) Urine Blood SMALL (0-5) Oscar/ul Urine Nitrite NEGATIVE (NEGATIVE) Urine Bilirubin NEGATIVE (NEGATIVE) Urine Urobilinogen NEGATIVE (0-1) mg/dL Ur Leukocyte Esterase NEGATIVE (NEGATIVE) Urine WBC (Auto) NONE (0-5) /HPF Urine RBC (Auto) NONE (0-2) /HPF U Epithel Cells (Auto) NONE (FEW) /HPF Urine Bacteria (Auto) NONE (NEGATIVE) /HPF Urine Mucus (Auto) SLIGHT (NEGATIVE) /HPF Urine Culture Reflexed NO (NO) Urine Glucose NEGATIVE (NEGATIVE) mg/dL Influenza Type A Ag NEGATIVE (NEGATIVE) Influenza Type B Ag NEGATIVE (NEGATIVE) RSV (PCR) NEGATIVE (Negative) Group A Strep Antibody NEGATIVE (NEGATIVE) 02/05/19 02/05/19 02/05/19 Range/Units 02:36 02:36 02:30 WBC 7.0 (4.0-10.5) K/mm3 RBC 4.45 (4.1-5.4) M/mm3 Hgb 13.6 (12.0-16.0) gm/dl Hct 40.2 (35-47) % MCV 90.3 (78-100) fl MCH 30.6 (26-32) pg MCHC 33.8 (32-36) g/dl RDW 13.4 (11.5-14.0) % Plt Count 227 (150-450) K/mm3 MPV 10.1 H (6-9.5) fl Gran % 41.3 (36.0-66.0) % Eos # (Auto) 0.07 (0-0.5) Absolute Lymphs (auto) 3.30 (1.0-4.6) Absolute Monos (auto) 0.72 (0.0-1.3) Lymphocytes % 47.0 H (24.0-44.0) % Monocytes % 10.3 (0.0-12.0) % Eosinophils % 1.0 (0.00-5.0) % Basophils % 0.4 (0.0-0.4) % Absolute Granulocytes 2.90 (1.4-6.9) Basophils # 0.03 (0-0.4) D-Dimer (215-500) ng/mL Sodium 132 L (137-145) mmol/L Potassium 3.2 L (3.5-5.1) mmol/L Chloride 96 L (98-107) mmol/L Carbon Dioxide 23 (22-30) mmol/L Anion Gap 16.6 H (5-15) MEQ/L BUN 26 H (7-17) mg/dL Creatinine 2.05 H (0.52-1.04) mg/dL Estimated GFR 26.3 ML/MIN Glucose 87 (74-106) mg/dL Lactic Acid 1.2 (0.4-2.0) Calcium 9.9 (8.4-10.2) mg/dL Total Bilirubin 0.60 (0.2-1.3) mg/dL AST 35 (14-36) U/L ALT 17 (0-35) U/L Alkaline Phosphatase 77 (38-126) U/L Troponin I < 0.012 (0.000-0.034) ng/mL NT-Pro-B Natriuret Pep 356 (0-900) pg/mL Serum Total Protein 7.6 (6.3-8.2) g/dL Albumin 4.4 (3.5-5.0) g/dL Thyroxine (T4) 16.4 H (5.53-10.96) ug/dL TSH 3rd Generation 0.026 L (0.47-4.68) mIU/L Urine Color (YELLOW) Urine Appearance (CLEAR) Urine pH (5-6) Ur Specific [place] (1.005-1.025) Urine Protein (Negative) Urine Ketones (NEGATIVE) Urine Blood (0-5) Oscar/ul Urine Nitrite (NEGATIVE) Urine Bilirubin (NEGATIVE) Urine Urobilinogen (0-1) mg/dL Ur Leukocyte Esterase (NEGATIVE) Urine WBC (Auto) (0-5) /HPF Urine RBC (Auto) (0-2) /HPF U Epithel Cells (Auto) (FEW) /HPF Urine Bacteria (Auto) (NEGATIVE) /HPF Urine Mucus (Auto) (NEGATIVE) /HPF Urine Culture Reflexed (NO) Urine Glucose (NEGATIVE) mg/dL Influenza Type A Ag (NEGATIVE) Influenza Type B Ag (NEGATIVE) RSV (PCR) (Negative) Group A Strep Antibody (NEGATIVE) - Progress Progress: improved, re-examined Progress Note: 02/05/19 05:[address] [place] ndiaye and pt and all agree best to admit pt and dr ndiaye feels best for her to be where cardiology is immediately available at [facility] , and also to correct hyperthyroid and K, and continue w/u and f/u for other findings today - compare old CXR granulomas vs nodules; 02/05/19 05:23 Bp is improved to 139 02/05/19 05:24 Counseled pt/family regarding: lab results, diagnosis, need for follow-up, rad results - Departure Departure Disposition: Transfer Clinical Impression: hyperthryoid ( chemical); Hypokalemia, , Intermittent palpitations, CRD ( chronic renal disease), lung granulomas/nodules Condition: Good Critical Care Time: No Referrals: WILSON DAVID [Primary Care Provider] -
[2019-02-05] MEDS ORDERED: Sodium Chloride 0.9% 1000 ML 1,000 ML IV SCH (02:15)
[2019-02-05 02:39] LABS: BASOPHIL % 0.4 % (0.0-0.4); Basophil (Absolute #) 0.03 (0-0.4); Eosinophil (Absolute #) 0.07 (0-0.5); Granulocytes % 41.3 % (36.0-66.0); Hematocrit 40.2 % (35-47); Hemoglobin 13.6 gm/dl (12.0-16.0); Mean Cell Volume 90.3 fl (78-100); Mean Corpuscular Hemoglobin 30.6 pg (26-32); Mean Corpuscular Hgb Concent. 33.8 g/dl (32-36); Mean Platelet Volume 10.1 fl (6-9.5); Monocyte (Absolute #) 0.72 (0.0-1.3); Monocytes % 10.3 % (0.0-12.0); Platelet Count 227 K/mm3 (150-450); Red Blood Count 4.45 M/mm3 (4.1-5.4); Red Cell Distribution Width 13.4 % (11.5-14.0)
[2019-02-05] MEDS ORDERED: Ativan 1 MG ONE (02:41)
[2019-02-05] MEDS ORDERED: Sodium Chloride 0.9% 1000 ML 1,000 ML ONE (02:42)
[2019-02-05 03:01] LABS: Appearance CLEAR (CLEAR); Bilirubin NEGATIVE (NEGATIVE); Blood SMALL Ery/ul (0-5); Glucose NEGATIVE (NEGATIVE); Ketones TRACE (NEGATIVE); Leukocyte Esterase NEGATIVE (NEGATIVE); Mucus SLIGHT /HPF (NEGATIVE); Nitrite NEGATIVE (NEGATIVE); Protein,Urine Dip NEGATIVE (Negative); Specific Gravity 1.002 (1.005-1.025); Urobilinogen NEGATIVE mg/dL (0-1)
[2019-02-05 03:22] LABS: ALBUMIN 4.4 g/dL (3.5-5.0); ALKALINE PHOSPHATASE 77 U/L (38-126); ANION GAP 16.6 MEQ/L (5-15); BLOOD UREA NITROGEN 26 mg/dL (7-17); CHLORIDE 96 mmol/L (98-107); Calcium 9.9 mg/dL (8.4-10.2); Carbon Dioxide 23 mmol/L (22-30); Creatinine 1 2.05 mg/dL (0.52-1.04); Glucose 87 mg/dL (74-106); NT PRO BNP 356 pg/mL (0-900); Potassium 3.2 mmol/L (3.5-5.1); SGOT/AST 35 U/L (14-36); SGPT/ALT 17 U/L (0-35); SODIUM 132 mmol/L (137-145); T4 (Thyroxine) 16.4 ug/dL (5.53-10.96); TSH, 3RD Generation 0.026 mIU/L (0.47-4.68); Total Protein 7.6 g/dL (6.3-8.2)
[2019-02-05 03:23] LABS: TROPONIN < 0.012 ng/mL (0.000-0.034)
[2019-02-05 03:59] LABS: Group A Strep NEGATIVE (NEGATIVE); INFLUENZA A NEGATIVE (NEGATIVE); INFLUENZA B NEGATIVE (NEGATIVE); RESPIRATORY SYNCTIAL VIRUS NEGATIVE (Negative)
[2019-02-05 05:03] VITALS: BP 135/79; PULSE 66; O2SAT 98
--- NOTE | 2019-02-05 08:58 | XRAY ---
Indication: Short of breath. Trouble swallowing. Comparison: April 19, 2012. PA/lateral chest again demonstrates normal heart and lungs with left mid lung calcified granuloma. Bony thorax intact. No new/acute findings.
== END 2019-02-05 06:38 | disposition short-term general hospital (02) ==
LOC: ED 01:51
DX: E05.80 Other thyrotoxicosis without thyrotoxic crisis or storm (principal); E87.6 Hypokalemia; R00.2 Palpitations; I12.9 Hypertensive chronic kidney disease with stage 1 through stage 4 chronic kidney disease, or unspecified chronic kidney disease; N18.9 Chronic kidney disease, unspecified; R91.8 Other nonspecific abnormal finding of lung field; Z79.899 Other long term (current) drug therapy
CPT/HCPCS: 36000; 36415; 71046; 80053; 81001; 83605; 83880; 84436; 84443; 84484; 85025; 85379; 87631; 87651; 93005; 96360; 96361; 99285; A9270-GY

== ENCOUNTER 2021-05-14 10:27 | Day surgery (SDC) | payer MEDICARE ==
[2012-04-23 10:59] VITALS: BP 127/56
[2021-05-14] MEDS ORDERED: Xylocaine 1% Vial 30 ML PF IJ ONE (10:28)
[2021-05-14] MEDS ORDERED: LIDOCAINE HCL 2% 100 MG/5 ML IJ ONE (10:28)
[2021-05-14] MEDS ORDERED: DIPRIVAN 200 MG/20 ML IV ONE (12:31)
[2021-05-14] MEDS ORDERED: Lactated Ringers 1,000 ML IV ONE (13:20)
--- NOTE | 2021-05-14 13:49 | XRAY ---
Indication: Bilateral L4-S1 MBB. Intraoperative fluoroscopy provided for 8 seconds. Single digital spot image submitted for interpretation demonstrates posterior needle tips projecting over the expected left and right L4-S1 nerve roots. Correlate with intraoperative findings/report.
--- NOTE | 2021-05-14 14:06 | XRAY ---
8 seconds of fluoroscopy was used in surgery for a bilateral L4-S1 MBB.
== END 2021-05-14 13:02 | disposition home or self-care (01) ==
LOC: SDC-PAIN 10:27
PROVIDERS: ATTEND Psychiatry & Neurology Pain Medicine
DX: M47.816 Spondylosis without myelopathy or radiculopathy, lumbar region (principal); N18.30 Chronic kidney disease, stage 3 unspecified; J44.9 Chronic obstructive pulmonary disease, unspecified; I10 Essential (primary) hypertension; E03.9 Hypothyroidism, unspecified; Z79.899 Other long term (current) drug therapy
CPT/HCPCS: 64493; 64494; 72020; 77002; J2001; J2704

== ENCOUNTER 2021-05-28 09:50 | Day surgery (SDC) | payer MEDICARE ==
[2012-04-23 10:59] VITALS: BP 127/56
[2021-05-28] MEDS ORDERED: Depo-Medrol 40 MG/ML IM ONE (09:51)
[2021-05-28] MEDS ORDERED: BUPIVACAINE 0.5% VIAL IJ ONE (09:51)
[2021-05-28] MEDS ORDERED: DIPRIVAN 200 MG/20 ML IV ONE (09:51)
--- NOTE | 2021-05-28 12:00 | XRAY ---
Indication: Bilateral SI joint injection. Intraoperative fluoroscopy provided for 17 seconds. 3 digital spot image submitted for interpretation demonstrates posterior needle tip projecting over the inferior right SI joint. Second lateral digital spot image also demonstrates posterior needle tip projecting mid sacrum. Correlate with intraoperative findings/report.
[2021-05-28] MEDS ORDERED: Lactated Ringers 1,000 ML IV ONE (12:03)
--- NOTE | 2021-05-28 12:39 | XRAY ---
17 seconds fluoroscopy time in surgery for an injection of both SI joints.
== END 2021-05-28 11:48 | disposition home or self-care (01) ==
LOC: SDC-PAIN 09:50
PROVIDERS: ATTEND Psychiatry & Neurology Pain Medicine
DX: M46.1 Sacroiliitis, not elsewhere classified (principal); N18.30 Chronic kidney disease, stage 3 unspecified; J44.9 Chronic obstructive pulmonary disease, unspecified; I10 Essential (primary) hypertension; Z79.899 Other long term (current) drug therapy
CPT/HCPCS: 27096; 72202; 77002; G0260; J1030; J2704

== ENCOUNTER 2021-09-25 13:15 | Day surgery (SDC) | payer MEDICARE ==
[2012-04-23 10:59] VITALS: BP 127/56
[2021-09-25] MEDS ORDERED: BUPIVACAINE 0.5% VIAL IJ ONE (13:16)
[2021-09-25] MEDS ORDERED: DIPRIVAN 200 MG/20 ML IV ONE (15:41)
[2021-09-25] MEDS ORDERED: Lactated Ringers 1,000 ML IV ONE (16:11)
--- NOTE | 2021-09-25 16:58 | XRAY ---
8 seconds fluoroscopy time in surgery for bilateral L4-S1 MBB.
== END 2021-09-25 16:03 | disposition home or self-care (01) ==
LOC: SDC-PAIN 13:15
PROVIDERS: ATTEND Psychiatry & Neurology Pain Medicine
DX: M47.816 Spondylosis without myelopathy or radiculopathy, lumbar region (principal); I10 Essential (primary) hypertension; Z79.899 Other long term (current) drug therapy
CPT/HCPCS: 64493; 64494; 72020; 77002; J2704

== ENCOUNTER 2021-10-22 11:01 | Day surgery (SDC) | payer MEDICARE ==
[2012-04-23 10:59] VITALS: BP 127/56
[2021-10-22] MEDS ORDERED: Depo-Medrol 40 MG/ML IM ONE (11:02)
[2021-10-22] MEDS ORDERED: Marcaine Mpf 0.5% Vial 30 Ml IJ ONE (11:02)
[2021-10-22] MEDS ORDERED: Xylocaine 1% Vial 30 ML PF IJ ONE (11:02)
[2021-10-22] MEDS ORDERED: Lactated Ringers 1,000 ML IV ONE (12:29)
[2021-10-22] MEDS ORDERED: DIPRIVAN 200 MG/20 ML IV ONE (12:41)
--- NOTE | 2021-10-22 14:02 | XRAY ---
Indication: Right L4-S1 RFA. Intraoperative fluoroscopy provided for 33 seconds. 3 digital spot image submitted for interpretation demonstrates posterior needle tips projecting over the expected right L4-S1 nerve roots. Correlate with intraoperative findings/report.
--- NOTE | 2021-10-22 15:17 | XRAY ---
33 seconds of fluoroscopy was used in surgery for a right L4-S1 RFA.
== END 2021-10-22 13:11 | disposition home or self-care (01) ==
LOC: SDC-PAIN 11:01
PROVIDERS: ATTEND Psychiatry & Neurology Pain Medicine
DX: M47.816 Spondylosis without myelopathy or radiculopathy, lumbar region (principal); Z79.899 Other long term (current) drug therapy
CPT/HCPCS: 64635; 64636; 72100; 77002; J1030; J2001; J2704

== ENCOUNTER 2021-10-29 11:10 | Day surgery (SDC) | payer MEDICARE ==
[2012-04-23 10:59] VITALS: BP 127/56
[2021-10-29] MEDS ORDERED: Marcaine Mpf 0.5% Vial 30 Ml IJ ONE (11:11)
[2021-10-29] MEDS ORDERED: Xylocaine 1% Vial 30 ML PF IJ ONE (11:11)
[2021-10-29] MEDS ORDERED: Depo-Medrol 40 MG/ML IM ONE (11:11)
[2021-10-29] MEDS ORDERED: Lactated Ringers 1,000 ML IV ONE (12:17)
[2021-10-29] MEDS ORDERED: DIPRIVAN 200 MG/20 ML IV ONE (12:47)
--- NOTE | 2021-10-29 14:05 | XRAY ---
Indication: Left L4-S1 RFA. Intraoperative fluoroscopy provided for 20 seconds. 4 digital spot image submitted for interpretation demonstrates posterior needle tips projecting over the expected left L4-S1 nerve roots. Correlate with intraoperative findings/report.
--- NOTE | 2021-10-29 14:48 | XRAY ---
20 seconds of fluoroscopy was used in surgery for a left L4-S1 RFA.
== END 2021-10-29 13:20 | disposition home or self-care (01) ==
LOC: SDC-PAIN 11:10
PROVIDERS: ATTEND Psychiatry & Neurology Pain Medicine
DX: M47.816 Spondylosis without myelopathy or radiculopathy, lumbar region (principal); Z79.899 Other long term (current) drug therapy
CPT/HCPCS: 64635; 64636; 72100; 77002; J1030; J2001; J2704

== ENCOUNTER 2021-11-26 10:48 | Day surgery (SDC) | payer MEDICARE ==
[2012-04-23 10:59] VITALS: BP 127/56
[2021-11-26] MEDS ORDERED: Depo-Medrol 40 MG/ML IM ONE (10:49)
[2021-11-26] MEDS ORDERED: Marcaine Mpf 0.5% Vial 30 Ml IJ ONE (10:49)
[2021-11-26] MEDS ORDERED: DIPRIVAN 200 MG/20 ML IV ONE (11:44)
[2021-11-26] MEDS ORDERED: Lactated Ringers 1,000 ML IV ONE (12:28)
--- NOTE | 2021-11-26 13:22 | XRAY ---
Indication: Bilateral SI joint injection. Intraoperative fluoroscopy provided for 15 seconds. 4 digital spot image submitted for interpretation demonstrates posterior needle tip projecting over the inferior left and right SI joints. Correlate with intraoperative findings/report.
--- NOTE | 2021-11-26 13:28 | XRAY ---
15 seconds fluoroscopy time in surgery for bilateral injections of the SI joints.
== END 2021-11-26 12:10 | disposition home or self-care (01) ==
LOC: SDC-PAIN 10:48
PROVIDERS: ATTEND Psychiatry & Neurology Pain Medicine
DX: M46.1 Sacroiliitis, not elsewhere classified (principal); I10 Essential (primary) hypertension; Z79.899 Other long term (current) drug therapy
CPT/HCPCS: 27096; 72202; 77002; G0260; J1030; J2704

== ENCOUNTER 2022-01-14 10:02 | Day surgery (SDC) | payer MEDICARE ==
[2012-04-23 10:59] VITALS: BP 127/56
[2022-01-14] MEDS ORDERED: Marcaine Mpf 0.5% Vial 30 Ml IJ ONE (10:03)
[2022-01-14] MEDS ORDERED: Depo-Medrol 40 MG/ML IM ONE (10:03)
[2022-01-14] MEDS ORDERED: DIPRIVAN 200 MG/20 ML IV ONE (11:23)
[2022-01-14] MEDS ORDERED: Lactated Ringers 1,000 ML IV ONE (12:16)
--- NOTE | 2022-01-14 14:34 | XRAY ---
Indication: Bilateral greater trochanter bursa injection. Intraoperative fluoroscopy provided for 21 seconds. 2 digital spot image submitted for interpretation demonstrates needle tip projecting just lateral to the left and right greater trochanters. Small amount of contrast injected for both needle tip placement. Correlate with intraoperative findings/report.
--- NOTE | 2022-01-14 16:44 | XRAY ---
21 seconds of fluoroscopy was used in surgery for bilateral hip greater trochanteric bursa injections.
== END 2022-01-14 11:49 | disposition home or self-care (01) ==
LOC: SDC-PAIN 10:02
PROVIDERS: ATTEND Psychiatry & Neurology Pain Medicine
DX: M70.62 Trochanteric bursitis, left hip (principal); M70.61 Trochanteric bursitis, right hip; Z79.899 Other long term (current) drug therapy
CPT/HCPCS: 20610; 73521; 77002; J1030; J2704; Q9966

== ENCOUNTER 2022-02-18 12:07 | Day surgery (SDC) | payer MEDICARE ==
[2012-04-23 10:59] VITALS: BP 127/56
[2022-02-18] MEDS ORDERED: BUPIVACAINE 0.5% VIAL IJ ONE (12:08)
[2022-02-18] MEDS ORDERED: Depo-Medrol 40 MG/ML IM ONE (12:08)
[2022-02-18] MEDS ORDERED: DIPRIVAN 200 MG/20 ML IV ONE (13:42)
[2022-02-18] MEDS ORDERED: Lactated Ringers 1,000 ML IV ONE ×2 (14:32→14:33)
--- NOTE | 2022-02-18 18:28 | XRAY ---
Indication: Bilateral greater trochanter bursa injection. Intraoperative fluoroscopy provided for 15 seconds. 2 digital spot image submitted for interpretation demonstrates needle tip projecting lateral to the left and right femur greater trochanters. Small amount of contrast injected for needle tip placement. Correlate with intraoperative findings/report.
--- NOTE | 2022-02-18 18:32 | XRAY ---
Indication: Right shoulder injection. Intraoperative fluoroscopy provided for 10 seconds. Single digital spot image submitted for interpretation demonstrates needle tip projecting over the right glenohumeral joint superiorly. Small amount of contrast injected for needle tip placement. Correlate with intraoperative findings/report.
--- NOTE | 2022-02-18 18:34 | XRAY ---
10 seconds fluoroscopy time in surgery for intra-articular injection of the right shoulder.
--- NOTE | 2022-02-18 18:34 | XRAY ---
15 seconds fluoroscopy time in surgery for injections of the greater trochanter of both hips.
== END 2022-02-18 14:09 | disposition home or self-care (01) ==
LOC: SDC-PAIN 12:07
PROVIDERS: ATTEND Psychiatry & Neurology Pain Medicine
DX: M19.011 Primary osteoarthritis, right shoulder (principal); M70.62 Trochanteric bursitis, left hip; M70.61 Trochanteric bursitis, right hip; Z79.899 Other long term (current) drug therapy
CPT/HCPCS: 20610; 73030; 73521; 77002; J1030; J2704; Q9966

== ENCOUNTER 2022-12-23 12:30 | Day surgery (SDC) | payer MEDICARE ==
[2012-04-23 10:59] VITALS: BP 127/56
[2022-12-23] MEDS ORDERED: Depo-Medrol 40 MG/ML IM ONE (12:31)
[2022-12-23] MEDS ORDERED: BUPIVACAINE 0.5% VIAL IJ ONE (12:31)
[2022-12-23] MEDS ORDERED: DIPRIVAN 200 MG/20 ML IV ONE (14:13)
[2022-12-23] MEDS ORDERED: Lactated Ringers 1,000 ML IV ONE (16:01)
--- NOTE | 2022-12-23 16:40 | XRAY ---
Indication: Bilateral SI joint and bilateral hip injections. Intraoperative fluoroscopy provided for 48 seconds. 6 digital spot images obtained prone submitted for interpretation demonstrates posterior needle tip projecting over the left and right SI joint. Additional needle tip lateral to the left and right femur necks with small amount of contrast injected for needle tip placement. Correlate with intraoperative findings/report.
--- NOTE | 2022-12-23 16:50 | XRAY ---
48 seconds of fluoroscopy was used in surgery for a bilateral sacroiliac joint and bilateral intra-articular hip injection.
== END 2022-12-23 14:42 | disposition home or self-care (01) ==
LOC: SDC-PAIN 12:30
PROVIDERS: ATTEND Psychiatry & Neurology Pain Medicine
DX: M46.1 Sacroiliitis, not elsewhere classified (principal); M16.0 Bilateral primary osteoarthritis of hip; Z79.899 Other long term (current) drug therapy
CPT/HCPCS: 01992; 20610; 27096; 73521; 77002; G0260; J1030; J2704; Q9966